=== PATIENT | male | born 1980 | race African-American/Black ===

== ENCOUNTER 2021-04-09 10:56 | Inpatient (IN) | payer BC ==
[2021-04-09] MEDS ORDERED: MENTHOL/PHENOL 1 EACH UD MM PRN (13:26)
[2021-04-09] MEDS ORDERED: NICOTINE 10 MG CARTRIDGE (INHALER) IH PRN (13:26)
[2021-04-09] MEDS ORDERED: ONDANSETRON *ODT* 4 MG TABLET SL PRN (13:26)
[2021-04-09] MEDS ORDERED: BISMUTH SUBSALICYLATE 262 MG/15 ML BTL PO PRN (13:26)
[2021-04-09] MEDS ORDERED: LORazepam 1 MG TABLET PO PRN (13:26)
[2021-04-09] MEDS ORDERED: IBUPROFEN 400 MG TABLET (FP) PO PRN (13:26)
[2021-04-09] MEDS ORDERED: MAGNESIUM HYDROX 2400MG/30ML ORAL SUSPENSION 30 ML CUP PO PRN (13:26)
[2021-04-09] MEDS ORDERED: MAG HYDROX/AL HYDROX/SIMETH 30 ML UNIT-DOSE CUP PO PRN (13:26)
[2021-04-09] MEDS ORDERED: ACETAMINOPHEN 325 MG TABLET (FP) PO PRN ×2 (13:26)
[2021-04-09] MEDS ORDERED: MAGNESIUM CITRATE 300 ML BOTTLE PO PRN (13:26)
[2021-04-09] MEDS ORDERED: SODIUM CHLORIDE FOR INHALATION 3 ML VIAL.NEB IH PRN (13:30)
[2021-04-09 13:56] VITALS: BMI 18.3
[2021-04-09] MEDS: hydrOXYzine PAMOATE 25 MG CAPSULE (FP) PO SCH ×3 (14:49→22:21)
[2021-04-09] MEDS: traZODone HCL 50 MG TABLET (FP) PO SCH (22:19)
[2021-04-09] MEDS: MELATONIN 5 MG TABLETS PO SCH (22:20)
[2021-04-09] MEDS: SODIUM CHLORIDE NASAL SPRAY 44 ML BOTTLE NS SCH (22:20)
[2021-04-09] MEDS: THIAMINE HCL 100 MG TABLET (FP) PO SCH (22:20)
[2021-04-09] MEDS: LORazepam 2 MG TABLET PO SCH (22:21)
[2021-04-10] MEDS: hydrOXYzine PAMOATE 25 MG CAPSULE (FP) PO SCH ×5 (06:27→22:52)
[2021-04-10] MEDS: LORazepam 2 MG TABLET PO SCH ×4 (06:27→22:49)
[2021-04-10 10:18] LABS: CALCIUM 8.7 mg/dL (8.5-10.1); CREATININE 0.7 mg/dL (0.55-1.3)
[2021-04-10 10:19] LABS: ALBUMIN 3.7 g/dl (3.4-5.0)
[2021-04-10 10:20] LABS: BILIRUBIN,TOTAL 0.2 mg/dL (0.2-1); TOT PROT 8.4 g/dl (6.4-8.2)
[2021-04-10 10:41] LABS: HEMATOCRIT 35.5 % (35.4-49); HEMOGLOBIN 12.2 GM/dL (11.7-16.9); MCHC 34.5 g/dl (32.0-35.9); MEAN CELL VOLUME 98.6 fl (80-96); MEAN PLT VOLUME 7.2 fl (7.5-11.1); PLATELET COUNT 194 10^3/uL (134-434); RDW 13.9 % (11.9-15.9); WHITE BLOOD COUNT 2.9 K/mm3 (4.0-10.0)
[2021-04-10] MEDS: SODIUM CHLORIDE NASAL SPRAY 44 ML BOTTLE NS SCH ×2 (10:45→22:53)
[2021-04-10] MEDS: PRENATAL VITAMINS W/ FOLIC ACID TABLET (FP) PO SCH (10:46)
[2021-04-10] MEDS: risperiDONE 0.5 MG TABLET PO SCH (10:46)
[2021-04-10] MEDS: traZODone HCL 50 MG TABLET (FP) PO SCH (22:51)
[2021-04-10] MEDS: MELATONIN 5 MG TABLETS PO SCH (22:52)
[2021-04-10] MEDS: THIAMINE HCL 100 MG TABLET (FP) PO SCH (22:52)
[2021-04-11] MEDS: hydrOXYzine PAMOATE 25 MG CAPSULE (FP) PO SCH ×5 (05:05→23:16)
[2021-04-11] MEDS: LORazepam 1 MG TABLET PO SCH ×4 (05:05→23:16)
[2021-04-11] MEDS: SODIUM CHLORIDE NASAL SPRAY 44 ML BOTTLE NS SCH ×2 (10:22→23:16)
[2021-04-11] MEDS: risperiDONE 0.5 MG TABLET PO SCH (10:22)
[2021-04-11] MEDS: PRENATAL VITAMINS W/ FOLIC ACID TABLET (FP) PO SCH (10:22)
[2021-04-11] MEDS: METHOCARBAMOL 500 MG TABLET PO PRN (10:29)
[2021-04-11] MEDS: THIAMINE HCL 100 MG TABLET (FP) PO SCH (23:16)
[2021-04-11] MEDS: traZODone HCL 50 MG TABLET (FP) PO SCH (23:16)
[2021-04-11] MEDS: MELATONIN 5 MG TABLETS PO SCH (23:17)
[2021-04-12] MEDS ORDERED: LORazepam 0.5 MG TABLET PO PRN
[2021-04-12] MEDS: hydrOXYzine PAMOATE 25 MG CAPSULE (FP) PO SCH ×5 (06:20→22:06)
[2021-04-12] MEDS: LORazepam 0.5 MG TABLET PO SCH ×4 (06:20→22:05)
[2021-04-12] MEDS: SODIUM CHLORIDE NASAL SPRAY 44 ML BOTTLE NS SCH ×2 (10:56→22:06)
[2021-04-12] MEDS: PRENATAL VITAMINS W/ FOLIC ACID TABLET (FP) PO SCH (10:56)
[2021-04-12] MEDS: risperiDONE 0.5 MG TABLET PO SCH (10:57)
[2021-04-12] MEDS: METHOCARBAMOL 500 MG TABLET PO PRN (10:57)
[2021-04-12] MEDS: THIAMINE HCL 100 MG TABLET (FP) PO SCH (22:06)
[2021-04-12] MEDS: MELATONIN 5 MG TABLETS PO SCH (22:06)
[2021-04-12] MEDS: traZODone HCL 50 MG TABLET (FP) PO SCH (22:06)
[2021-04-13] MEDS ORDERED: LORazepam 0.5 MG TABLET PO ONE (05:00)
[2021-04-13] MEDS: hydrOXYzine PAMOATE 25 MG CAPSULE (FP) PO SCH ×3 (06:33→14:23)
[2021-04-13] MEDS: SODIUM CHLORIDE NASAL SPRAY 44 ML BOTTLE NS SCH (09:36)
[2021-04-13] MEDS: PRENATAL VITAMINS W/ FOLIC ACID TABLET (FP) PO SCH (09:36)
[2021-04-13] MEDS: risperiDONE 0.5 MG TABLET PO SCH (09:36)
[2021-04-13] MEDS: METHOCARBAMOL 500 MG TABLET PO PRN (09:36)
[2021-04-13 11:52] LABS: BASO % 1.2 % (0-2.0); EOS % 2.7 % (0-4.5); HEMATOCRIT 36.1 % (35.4-49); HEMOGLOBIN 11.7 GM/dL (11.7-16.9); LYMPH % 47.3 % (8-40); MCHC 32.3 g/dl (32.0-35.9); MEAN PLT VOLUME 8.1 fl (7.5-11.1); MONO % 7.8 % (3.8-10.2); PLATELET COUNT 162 10^3/uL (134-434); RBC 3.76 M/mm3 (4.00-5.60); RDW 13.8 % (11.9-15.9); WHITE BLOOD COUNT 2.3 K/mm3 (4.0-10.0)
[2021-04-13 13:12] VITALS: BP 108/69; PULSE 103; TEMP 97.3
== END 2021-04-13 15:02 | disposition home or self-care (01) | DRG 774 ==
LOC: YASAS 10:56 → Y3N 14:02
PROVIDERS: ADMIT Allergy & Immunology; ATTEND Allergy & Immunology
PROC: HZ2ZZZZ Detoxification Services for Substance Abuse Treatment (ICD-10-PCS; principal; 2021-04-09)
DX: F10.230 Alcohol dependence with withdrawal, uncomplicated (principal); F14.20 Cocaine dependence, uncomplicated; F17.210 Nicotine dependence, cigarettes, uncomplicated; F31.9 Bipolar disorder, unspecified; F19.24 Other psychoactive substance dependence with psychoactive substance-induced mood disorder; F43.10 Post-traumatic stress disorder, unspecified; U07.1 COVID-19; Z87.39 Personal history of other diseases of the musculoskeletal system and connective tissue; Z87.19 Personal history of other diseases of the digestive system; Z88.0 Allergy status to penicillin
CPT/HCPCS: 36415; 80053; 85025; 85027; 86780; C9803; U0003; U0005

== ENCOUNTER 2021-12-11 13:11 | Inpatient (IN) | payer BC ==
[2021-12-11 13:43] VITALS: BMI 16.5
[2021-12-11] MEDS ORDERED: chlordiazePOXIDE HCL 25 MG CAPSULE PO PRN (14:49)
[2021-12-11] MEDS ORDERED: DICYCLOMINE HCL 10 MG CAPSULE PO PRN (14:49)
[2021-12-11] MEDS ORDERED: METHOCARBAMOL 500 MG TABLET PO PRN (14:49)
[2021-12-11] MEDS ORDERED: MAGNESIUM CITRATE 300 ML BOTTLE PO PRN (14:49)
[2021-12-11] MEDS ORDERED: ACETAMINOPHEN 325 MG TABLET (FP) PO PRN (14:49)
[2021-12-11] MEDS ORDERED: NICOTINE 10 MG CARTRIDGE (INHALER) IH PRN (14:49)
[2021-12-11] MEDS ORDERED: MAGNESIUM HYDROX 2400MG/30ML ORAL SUSPENSION 30 ML CUP PO PRN (14:49)
[2021-12-11] MEDS ORDERED: BENZOCAINE/MENTHOL (CHLORASEPTIC ) LOZENGE MM PRN (14:49)
[2021-12-11] MEDS ORDERED: MAG HYDROX/AL HYDROX/SIMETH 30 ML UNIT-DOSE CUP PO PRN (14:49)
[2021-12-11] MEDS ORDERED: IBUPROFEN 600 MG TABLET (FP) PO PRN (14:49)
[2021-12-11] MEDS ORDERED: ONDANSETRON *ODT* 4 MG TABLET SL PRN (14:49)
[2021-12-11] MEDS ORDERED: BISMUTH SUBSALICYLATE 524 MG/30 ML PO PRN (14:49)
[2021-12-11] MEDS ORDERED: IBUPROFEN 400 MG TABLET (FP) PO PRN (14:49)
[2021-12-11] MEDS: NICOTINE 14 MG/24 HOURS TOPICAL PATCH TD SCH (17:36)
[2021-12-11] MEDS: PRENATAL VITAMINS W/ FOLIC ACID TABLET (FP) PO SCH (17:37)
[2021-12-11] MEDS: chlordiazePOXIDE HCL 25 MG CAPSULE PO SCH ×2 (17:37→22:24)
[2021-12-11] MEDS: hydrOXYzine PAMOATE 25 MG CAPSULE (FP) PO SCH ×2 (17:37→22:25)
[2021-12-11] MEDS: MELATONIN 5 MG TABLETS PO SCH (22:25)
[2021-12-11] MEDS: QUEtiapine FUMARATE 100 MG TABLET (FP) PO SCH (22:25)
[2021-12-11] MEDS: THIAMINE HCL 100 MG TABLET (FP) PO SCH (22:25)
[2021-12-11] MEDS: traZODone HCL 50 MG TABLET (FP) PO SCH (22:25)
[2021-12-12] MEDS: chlordiazePOXIDE HCL 25 MG CAPSULE PO SCH ×4 (05:13→22:35)
[2021-12-12] MEDS: hydrOXYzine PAMOATE 25 MG CAPSULE (FP) PO SCH ×5 (05:14→22:35)
[2021-12-12] MEDS: SERTRALINE HCL 50 MG TABLET (FP) PO SCH (10:15)
[2021-12-12] MEDS: PRENATAL VITAMINS W/ FOLIC ACID TABLET (FP) PO SCH (10:15)
[2021-12-12] MEDS: ACETAMINOPHEN 325 MG TABLET (FP) PO PRN ×2 (10:18→20:01)
[2021-12-12] MEDS: NICOTINE 14 MG/24 HOURS TOPICAL PATCH TD SCH (11:07)
[2021-12-12 11:52] LABS: CREATININE 0.8 mg/dL (0.55-1.3)
[2021-12-12 11:53] LABS: HEMATOCRIT 25.9 % (35.4-49); HEMOGLOBIN 9.7 GM/dL (11.7-16.9); MCH 37.2 pg (25.7-33.7); MCHC 37.6 g/dl (32.0-35.9); MEAN CELL VOLUME 98.9 fl (80-96); MEAN PLT VOLUME 6.6 fl (7.5-11.1); PLATELET COUNT 228 10^3/uL (134-434); RBC 2.62 M/mm3 (4.00-5.60); RDW 14.4 % (11.9-15.9); WHITE BLOOD COUNT 2.5 K/mm3 (4.0-10.0)
[2021-12-12 11:54] LABS: BILIRUBIN,TOTAL 0.4 mg/dL (0.2-1); BLOOD UREA NITROGEN 10.6 mg/dL (7-18); TOT PROT 7.6 g/dl (6.4-8.2)
[2021-12-12 11:57] LABS: CALCIUM 8.3 mg/dL (8.5-10.1)
[2021-12-12 11:58] LABS: ALBUMIN 2.7 g/dl (3.4-5.0)
[2021-12-12] MEDS: LOPERAMIDE HCL 2 MG CAPSULE PO PRN (20:03)
[2021-12-12] MEDS: MELATONIN 5 MG TABLETS PO SCH (22:35)
[2021-12-12] MEDS: THIAMINE HCL 100 MG TABLET (FP) PO SCH (22:35)
[2021-12-12] MEDS: traZODone HCL 50 MG TABLET (FP) PO SCH (22:35)
[2021-12-12] MEDS: QUEtiapine FUMARATE 100 MG TABLET (FP) PO SCH (22:35)
[2021-12-13] MEDS: hydrOXYzine PAMOATE 25 MG CAPSULE (FP) PO SCH ×5 (05:13→22:13)
[2021-12-13] MEDS: chlordiazePOXIDE HCL 25 MG CAPSULE PO SCH ×4 (05:13→22:13)
[2021-12-13] MEDS: SERTRALINE HCL 50 MG TABLET (FP) PO SCH (10:16)
[2021-12-13] MEDS: PRENATAL VITAMINS W/ FOLIC ACID TABLET (FP) PO SCH (10:16)
[2021-12-13] MEDS: NICOTINE 14 MG/24 HOURS TOPICAL PATCH TD SCH (10:17)
[2021-12-13 11:07] LABS: ALBUMIN 2.9 g/dl (3.4-5.0); HEMATOCRIT 25.9 % (35.4-49); HEMOGLOBIN 9.8 GM/dL (11.7-16.9); MCH 38.1 pg (25.7-33.7); MCHC 37.9 g/dl (32.0-35.9); MEAN CELL VOLUME 100.5 fl (80-96); MEAN PLT VOLUME 6.9 fl (7.5-11.1); PLATELET COUNT 225 10^3/uL (134-434); RBC 2.58 M/mm3 (4.00-5.60); RDW 14.4 % (11.9-15.9); RETICULOCYTES 2.44 % (0.5-1.5); WHITE BLOOD COUNT 2.2 K/mm3 (4.0-10.0)
[2021-12-13 11:08] LABS: BLOOD UREA NITROGEN 9.8 mg/dL (7-18); CALCIUM 8.4 mg/dL (8.5-10.1)
[2021-12-13 11:09] LABS: TOT PROT 7.7 g/dl (6.4-8.2)
[2021-12-13 11:10] LABS: BILIRUBIN,TOTAL 0.3 mg/dL (0.2-1)
[2021-12-13 11:11] LABS: CREATININE 0.7 mg/dL (0.55-1.3)
[2021-12-13] MEDS: FERROUS SO4 325 MG TABLET (FP) PO SCH ×2 (13:48→17:29)
[2021-12-13] MEDS: MELATONIN 5 MG TABLETS PO SCH (22:13)
[2021-12-13] MEDS: THIAMINE HCL 100 MG TABLET (FP) PO SCH (22:13)
[2021-12-13] MEDS: traZODone HCL 50 MG TABLET (FP) PO SCH (22:13)
[2021-12-13] MEDS: QUEtiapine FUMARATE 100 MG TABLET (FP) PO SCH (22:13)
[2021-12-14] MEDS ORDERED: chlordiazePOXIDE HCL 10 MG CAPSULE PO PRN
[2021-12-14] MEDS: chlordiazePOXIDE HCL 10 MG CAPSULE PO SCH ×2 (05:30→10:33)
[2021-12-14] MEDS: hydrOXYzine PAMOATE 25 MG CAPSULE (FP) PO SCH ×3 (05:30→13:49)
[2021-12-14] MEDS: FERROUS SO4 325 MG TABLET (FP) PO SCH ×2 (08:29→12:31)
[2021-12-14] MEDS: NICOTINE 14 MG/24 HOURS TOPICAL PATCH TD SCH (10:32)
[2021-12-14] MEDS: PRENATAL VITAMINS W/ FOLIC ACID TABLET (FP) PO SCH (10:32)
[2021-12-14] MEDS: SERTRALINE HCL 50 MG TABLET (FP) PO SCH (10:33)
[2021-12-14] MEDS: LOPERAMIDE HCL 2 MG CAPSULE PO PRN (10:34)
[2021-12-14 13:13] VITALS: BP 138/91; PULSE 98; RESP 17; TEMP 97.1
[2021-12-14 18:10] LABS: HIV INTERPRETATION PRESUMPTIVE POSITIVE (NEGATIVE)
[2021-12-15] MEDS ORDERED: chlordiazePOXIDE HCL 10 MG CAPSULE PO SCH (05:00)
[2021-12-16] MEDS ORDERED: chlordiazePOXIDE HCL 10 MG CAPSULE PO ONE (05:00)
== END 2021-12-14 14:17 | disposition left against medical advice (07) | DRG 770 ==
LOC: YASAS 13:11 → Y3N 15:54
PROVIDERS: ADMIT Allergy & Immunology; ATTEND Surgery
PROC: HZ2ZZZZ Detoxification Services for Substance Abuse Treatment (ICD-10-PCS; principal; 2021-12-11)
DX: F10.230 Alcohol dependence with withdrawal, uncomplicated (principal); F14.20 Cocaine dependence, uncomplicated; M87.9 Osteonecrosis, unspecified; F17.210 Nicotine dependence, cigarettes, uncomplicated; R00.0 Tachycardia, unspecified; G47.00 Insomnia, unspecified; Z28.310 Unvaccinated for COVID-19; Z88.0 Allergy status to penicillin; Z91.018 Allergy to other foods; Z86.59 Personal history of other mental and behavioral disorders; Z91.51 Personal history of suicidal behavior; Z56.0 Unemployment, unspecified
CPT/HCPCS: 36415; 80053; 82607; 82746; 83540; 83550; 85027; 85045; 86780; 87389; C9803-CS; U0003; U0005